=== PATIENT | male | born 1960 | race Caucasian/White ===

== ENCOUNTER 2022-02-26 17:25 | Emergency (ER) | payer BC, SELFPAY ==
[2022-02-26 17:36] VITALS: BP 180/80; PULSE 71; RESP 18; TEMP 37.6; O2SAT 97; BMI 51.7
--- NOTE | 2022-02-26 19:39 | CRLHL7_ITS ---
For Patients: As a result of the Century Cures Act, medical imaging exams and procedure reports are released immediately into your electronic medical record. You may view this report before your referring provider. If you have questions, please contact your health care provider. Indication: Trauma. Technique: Right hand, 3 views. Comparison: None. Findings: Bones: Alignment is normal. No fractures or bone lesions. Joint spaces: Mild diffuse degenerative changes.. Soft tissues: Unremarkable. Impression: No sign of acute injury. Mild diffuse degenerative changes. Dictated by Guzman Louis MD @ 02/26/2022 9:06:02 PM (Electronically Signed)
[2022-02-26 19:55] LABS: Basophils Absolute Auto 0.02 K/uL (0.00-0.30); Basophils Percent Auto 0.3 % (0.0-3.0); Eosinophils Absolute Auto 0.16 K/uL (0.00-0.50); Eosinophils Percent Auto 2.6 % (0.0-7.0); Hematocrit 39.4 % (37.0-53.0); Hemoglobin* 13.2 gm/dL (13.5-17.5); Immature Granulocytes Abs Auto 0.01 K/uL (0.00-0.30); Immature Granulocytes Pct Auto 0.2 %; Lymphocytes Absolute Auto 1.93 K/uL (0.90-2.90); Mean Corpuscular HGB Conc 34 gm/dL (32-36); Mean Corpuscular Hemoglobin 31 pg (26-34); Mean Corpuscular Volume 91 fL (80-100); Monocytes Percent Auto 10.3 % (0.0-11.0); Neutrophils Percent Auto 54.6 % (42.0-72.0); Platelet Count* 198 K/uL (140-440); RDW Coefficient of Variation % 13.1 % (11.5-15.5); Red Blood Count 4.32 m/uL (4.30-5.90); White Blood Count* 6.04 K/uL (4.50-11.00)
[2022-02-26 20:02] LABS: Slide Review Reflex No
--- NOTE | 2022-02-26 20:03 | ED.GENADULT ---
HPI - General Adult General Chief complaint: Extremity Pain/Injury, Upper Stated complaint: Thumb Shooting Pain Light Headed Time Seen by Provider: 02/26/22 19:31 History of Present Illness HPI narrative: Pt is a 61 year old gentleman who presents with spontaneous pain in his right thumb that started 3 hours ago. No injury. No fevers or chills. Pt has mild swelling and feels like the digit is too stiff to make a fist. Pt has no redness. Pain extends from the 1st MCP to the wrist. No similar symptoms previously. No exacerbating or alleviating symptoms. No recent change in diet or activity. Related Data Home Medications Medication Instructions Recorded Confirmed No Known Home Medications 02/26/22 02/26/22 Allergies Allergy/AdvReac Type Severity Reaction Status Date / Time No Known Drug Allergies Allergy Verified 02/26/22 17:39 Review of Systems Status of ROS: Reports: 10 or more systems reviewed and unremarkable except as noted in History and below Exam Narrative: Exam Narrative: EXAM GENERAL: Patient appears comfortable and well. Patient overweight. EYES: No scleral icterus. LYMPH: No supraclavicular or cervical lymphadenopathy. SKIN: Visible skin seen during exam normal or with benign process only. EXT: Right hand normal to palpation with the exception of mild swelling of the MCP of the 1st digit. Capillary refill is no signs erythema or warmth. HEART: Regular rate and rhythm with no murmurs, rubs, or gallops. LUNGS: Clear to auscultation bilaterally with no crackles or wheezes. ABD: Soft, non tender, non distended. PSYCH: Good eye contact, speech is not pressured. Const: Vital Signs, click to edit/add: Vital Signs - 24 hr 02/26/22 17:36 Temperature 99.6 F Pulse Rate [Right Pulse Oximeter] 71 Respiratory Rate 18 Blood Pressure [Ri ght Upper Arm] 180/80 H Pulse Oximetry 97 Oxygen Delivery Me thod Room Air Course Course Hospital Course: Uric Acid, CBC, CMP, ESR, X ray ordered Reevaluation(s) Reevaluation #1: Labs and x ray reviewed by me reassuring. Time: 20:44 Vital Signs Vital signs: Initial Vital Signs Temperature 99.6 F 02/26/22 17:36 Temperature Source Temporal Artery Scan 02/26/22 17:36 Pulse Rate 71 02/26/22 17:36 Respiratory Rate 18 02/26/22 17:36 Blood Pressure 180/80 H 02/26/22 17:36 Blood Pressure Mean 113 02/26/22 17:36 Blood Pressure Position Sitting 02/26/22 17:36 Pulse Oximetry 97 02/26/22 17:36 Oxygen Delivery Method 02/26/22 17:36 Vital Signs Temperature 99.6 F 02/26/22 17:36 Pulse Rate 71 02/26/22 17:36 Respiratory Rate 18 02/26/22 17:36 Blood Pressure 180/80 H 02/26/22 17:36 Pulse Oximetry 97 02/26/22 17:36 Oxygen Delivery Method 02/26/22 17:36 Temperature 99.6 F 02/26/22 17:36 Pulse Rate 71 02/26/22 17:36 Respiratory Rate 18 02/26/22 17:36 Blood Pressure 180/80 H 02/26/22 17:36 Pulse Oximetry 97 02/26/22 17:36 Oxygen Delivery Method 02/26/22 17:36 Medical Decision Making MDM Narrative Medical decision making narrative: Pt presents with acute pain in the right thumb. No injury. Labs and x rays reassuring. This represents an acute monoarthritis. Will treat with rest and prednisone for the next 5 days with out pt follow up. Differential Diagnosis Differential Diagnosis: Gout, Fracture, Sprain, Monoarthritis, Carpel Tunnel, Tendon Injury Medical Records Medical records reviewed: Yes I reviewed the patient's medical records Lab Data Labs: Lab Results 02/26/22 02/26/22 02/26/22 Range/Units 19:39 19:51 19:51 WBC 6.04 (4.50-11.00) K/uL RBC 4.32 (4.30-5.90) m/uL Hgb 13.2 L (13.5-17.5) gm/dL Hct 39.4 (37.0-53.0) % MCV 91 (80-100) fL MCH 31 (26-34) pg MCHC 34 (32-36) gm/dL RDW Coeff of Don 13.1 (11.5-15.5) % Plt Count 198 (140-440) K/uL Neut % (Auto) 54.6 (42.0-72.0) % Lymph % (Auto) 32.0 (20-44) % Lyman % (Auto) 10.3 (0.0-11.0) % Eos % (Auto) 2.6 (0.0-7.0) % Baso % (Auto) 0.3 (0.0-3.0) % Neut # (Auto) 3.30 (1.7-7.0) K/uL Lymph # (Auto) 1.93 (0.90-2.90) K/uL Lyman # (Auto) 0.60 (0.00-0.90) K/UL Eos # (Auto) 0.16 (0.00-0.50) K/uL Baso # (Auto) 0.02 (0.00-0.30) K/uL Abs Immat Gran (auto) 0.01 (0.00-0.30) K/uL Imm/Tot Granulo (auto) 0.2 % ESR 18 H (2-15) mm/hr Sodium 141 (135-149) mmol/L Potassium 3.9 (3.6-5.1) mmol/L Chloride 106 (96-114) mmol/L Carbon Dioxide 25 (20-32) mmol/L BUN 16 (7-30) mg/dL Creatinine 0.7 (0.5-1.5) mg/dL Estimated Creat Clear 79.08 Estimated GFR 104 ml/min Glucose 97 (60-115) mg/dL Uric Acid 4.9 (2.2-8.4) mg/dL Calcium 8.4 (8.4-10.6) mg/dL Total Bilirubin 0.3 (0.1-1.5) mg/dL AST 40 H (12-35) U/L ALT 48 (4-50) U/L Alkaline Phosphatase 76 (40-150) U/L Total Protein 7.3 (6.0-8.3) g/dL Albumin 4.2 (3.3-5.0) g/dL Discharge Plan Discharge Clinical Impression: Monoarthritis Condition: Stable Additional Instructions: Rest Ice Prednisone as directed Tylenol as needed Activity Level: No Restrictions Discharge Diet: Regular Prescriptions: No Action No Known Home Medications Follow Up/Referrals: Provider,Not a Local [Primary Care Provider] - Stand Alone Forms: [employer] [facility] Info Instructions
[2022-02-26 20:20] LABS: Albumin* 4.2 g/dL (3.3-5.0); Chloride* 106 mmol/L (96-114)
[2022-02-26 20:21] LABS: Potassium* 3.9 mmol/L (3.6-5.1); Sodium* 141 mmol/L (135-149)
[2022-02-26 20:23] LABS: Aspartate Amino Transferase* 40 U/L (12-35); Bilirubin Total* 0.3 mg/dL (0.1-1.5); Blood Urea Nitrogen* 16 mg/dL (7-30); Carbon Dioxide* 25 mmol/L (20-32); Creatinine* 0.7 mg/dL (0.5-1.5); Est. Creatinine Clearance* 79.08; Estimated Glomerular Filt Rate 104 ml/min; Total Protein* 7.3 g/dL (6.0-8.3)
[2022-02-26 20:24] LABS: Alanine Aminotransferase* 48 U/L (4-50); Alkaline Phosphatase* 76 U/L (40-150); Calcium* 8.4 mg/dL (8.4-10.6); Glucose* 97 mg/dL (60-115); Uric Acid* 4.9 mg/dL (2.2-8.4)
[2022-02-26 20:36] LABS: Erythrocyte SedimentationRate* 18 mm/hr (2-15)
[2022-02-26 20:56] VITALS: BP 167/74; PULSE 73; RESP 16
== END 2022-02-26 21:02 | disposition home or self-care (01) ==
PROVIDERS: Emergency Provider Internal Medicine
DX: M13.141 Monoarthritis, not elsewhere classified, right hand (principal)
CPT/HCPCS: 36415; 73130; 80053; 84550; 85025; 85651; 99283